=== PATIENT | female | born 1945 | race Caucasian/White ===

== ENCOUNTER 2019-07-08 15:41 | Emergency (ER) | payer OTHER ==
[~2019-07-08] VITALS: Ht 152.4 cm; Wt 63.0 kg
[2019-07-08] MEDS ORDERED: EFFEXOR XR75 MG PO (15:54)
[2019-07-08] MEDS ORDERED: PRILOSEC OTC20 MG PO (15:55)
[2019-07-08] MEDS ORDERED: EVISTA60 MG PO (15:55)
[2019-07-08] MEDS ORDERED: CALTRATE 600+D1 EAC1 PO (15:55)
== END 2019-07-08 18:23 | disposition home or self-care (01) ==
LOC: ER 15:41
DX: S01.02XA Laceration with foreign body of scalp, initial encounter (principal); W18.09XA Striking against other object with subsequent fall, initial encounter; Y93.89 Activity, other specified; Y92.018 Other place in single-family (private) house as the place of occurrence of the external cause; Y99.8 Other external cause status

== ENCOUNTER 2019-07-18 15:50 | Emergency (ER) | payer OTHER ==
[~2019-07-18] VITALS: Ht 152.4 cm; Wt 62.6 kg
[~2019-07-18 15:50] MED LIST: CALTRATE 600+D1 EAC1 PO; EFFEXOR XR75 MG PO; EVISTA60 MG PO; PRILOSEC OTC20 MG PO
== END 2019-07-18 16:47 | disposition home or self-care (01) ==
LOC: ER 15:50
DX: Z48.02 Encounter for removal of sutures (principal)

== ENCOUNTER 2022-10-23 10:30 | Emergency (ER) | payer OTHER ==
[~2022-10-23] VITALS: Ht 152.4 cm; Wt 61.2 kg
== END 2022-10-23 15:16 | disposition home or self-care (01) ==
LOC: ER 10:30
DX: K52.9 Noninfective gastroenteritis and colitis, unspecified (principal); K21.9 Gastro-esophageal reflux disease without esophagitis; I10 Essential (primary) hypertension

== ENCOUNTER 2023-05-07 09:04 | Outpatient (CLI) | payer OTHER | END 2023-05-07 09:14 | disposition home or self-care (01) | LOC: SONOGRAMA 09:04 | PROVIDERS: ATTEND Internal Medicine Cardiovascular Disease | DX: R10.9 Unspecified abdominal pain (principal) ==

== ENCOUNTER 2025-04-17 15:01 | Outpatient (CLI) | payer OTHER | END 2025-04-17 15:02 | disposition home or self-care (01) | LOC: RAD 15:01 | PROVIDERS: ATTEND Physical Medicine & Rehabilitation | DX: M16.12 Unilateral primary osteoarthritis, left hip (principal); M25.562 Pain in left knee; W19.XXXA Unspecified fall, initial encounter ==